=== PATIENT | male | born 1980 | race Caucasian/White ===

== ENCOUNTER → 2025-05-15 07:38 | Outpatient (REF) | payer MEDICARE, SELFPAY | LOC: EMG 07:38 | PROVIDERS: ATTENDING PHYSICIAN Psychiatry & Neurology Neurology; FAMILY PHYSICIAN Family Medicine | DX: G62.9 Polyneuropathy, unspecified (principal); R20.0 Anesthesia of skin | CPT/HCPCS: 95886; 95913 ==

== ENCOUNTER → 2025-05-17 06:31 | Outpatient (REF) | payer MEDICARE, SELFPAY | LOC: MRI 3T 06:31 | PROVIDERS: ATTENDING PHYSICIAN Psychiatry & Neurology Neurology | DX: M54.12 Radiculopathy, cervical region (principal); M54.16 Radiculopathy, lumbar region | CPT/HCPCS: 72141; 72148 ==